=== PATIENT | male | born 1960 | race African-American/Black ===

== ENCOUNTER 2021-10-04 18:12 | Emergency (ER) | payer OTHER ==
[~2021-10-04] VITALS: Ht 177.8 cm; Wt 99.8 kg
[2021-10-04 19:30] VITALS: BP_SYST 119
--- NOTE | 2021-10-04 19:30 | NUR ---
Patient triaged and placed in the tent. VSS and patient appears in no acute distress at this time. Accompanied by family member, awaiting available bed, and MD notified of need for MSE.
[2021-10-04] MEDS ORDERED: ACETAMINOPHEN 500 MG TABLET ONE (20:55)
--- NOTE | 2021-10-04 22:36 | NUR ---
dr. santiago in tent examining the patient
[2021-10-04] MEDS ORDERED: KETOROLAC TROMETHAMINE 30 MG VIAL IM ONE (22:45)
[2021-10-04 23:37] LABS: BASOPHILS % (AUTO) 0.5 % (0.0-2.0); EOSINOPHILS % (AUTO) 1.6 % (0.0-4.0); HEMATOCRIT 38.7 % (36-54); HEMOGLOBIN 13.4 g/dL (14.0-18.0); LYMPHOCYTES # (AUTO) 0.7 K/uL (1.0-5.5); LYMPHOCYTES % (AUTO) 20.9 % (20.5-51.5); MEAN CORPUSCULAR HEMOGLOBIN 30 pg (27-31); MEAN CORPUSCULAR HGB CONC 35 % (32-36); MEAN CORPUSCULAR VOLUME 85 fL (79.0-98.0); MONOCYTES # (AUTO) 0.5 K/uL (0.0-1.0); PLATELET COUNT (AUTO) 186 K/uL (130-430); RED BLOOD CELL COUNT(AUTO) 4.53 MIL/uL (4.2-6.2); RED CELL DISTRIBUTION WIDTH 13.2 % (9.0-15.0); WHITE BLOOD COUNT (AUTO) 3.2 K/uL (4.8-10.8)
[2021-10-04 23:55] LABS: ANION GAP 9 (5-15); CALCIUM 8.3 mg/dL (8.4-11.0); CHLORIDE 101 mmol/L (98-107); CREATININE 1.01 mg/dL (0.55-1.30); GLUCOSE 91 mg/dL (70-99); POTASSIUM 3.2 mmol/L (3.5-5.1); SODIUM SERUM 134 mmol/L (136-145); UREA NITROGEN, BLOOD 10 mg/dL (8-21)
[2021-10-05 00:02] LABS: GFR AFRICAN AMERICAN 96 mL/min (>90)
[2021-10-05 00:11] LABS: ALANINE AMINOTRANSFERASE 23 U/L (12-78); ALBUMIN 2.6 g/dL (3.4-4.8); ASPARTATE AMINOTRANSFERASE 18 U/L (10-37); TOTAL BILIRUBIN 1.2 mg/dL (0.0-1.0)
[2021-10-05] MEDS ORDERED: POTASSIUM CHLORIDE 20 MEQ TAB.PRT.SR PO ONE (00:15)
[2021-10-05] MEDS ORDERED: NIRM1TAB PO (00:55)
[2021-10-05 01:07] VITALS: BP_SYST 118
--- NOTE | 2021-10-05 01:08 | NUR ---
Patient given written and verbal discharge instructions and verbalizes understanding. ER MD discussed with patient the results and treatment provided. Patient in stable condition. ID arm band removed. Rx of paxlovid given. Patient educated on pain management and to follow up with PMD. Pain Scale 0/10 Opportunity for questions provided and answered. Medication side effect fact sheet provided.
== END 2021-10-05 01:07 | disposition home or self-care (01) ==
LOC: SED 18:12
DX: U07.1 COVID-19 (principal); D72.810 Lymphocytopenia; E87.6 Hypokalemia; R51.9 Headache, unspecified; R53.83 Other fatigue; R42 Dizziness and giddiness; Z79.899 Other long term (current) drug therapy
CPT/HCPCS: 99285; 71045; 87426; 80053; 82550; 85025; 84484; 36415; 93005; 96372; J1885